=== PATIENT | male | born 1985 ===

== ENCOUNTER 2019-05-24 14:31 | Emergency (ER) | payer SELFPAY ==
[2019-05-24 16:45] VITALS: BP 117/69
[2019-05-24 17:06] LABS: Basophils % (Auto) 0.3 % (0.0-1.8); Eosinophils % (Auto) 0.1 % (0.0-4.3); Hematocrit 43.5 % (35.5-45.6); Lymphocytes # (Auto) 1.4 K/mm3 (1.2-5.4); Lymphocytes % (Auto) 13.6 % (13.4-35.0); Mean Corpuscular HGB Conc 34 % (32-34); Mean Corpuscular Volume 85 fl (84-94); Monocytes # (Auto) 0.4 K/mm3 (0.0-0.8); Monocytes % (Auto) 4.1 % (0.0-7.3); Platelet Count 233 K/mm3 (140-440); Red Blood Count 5.11 M/mm3 (3.65-5.03); Red Cell Distribution Width 12.9 % (13.2-15.2)
[2019-05-24 17:20] LABS: Bilirubin,Urine NEG (Negative); Blood,Urine NEG (Negative); Color,Urine Straw (Yellow); Protein,Urine <15 mg/dL mg/dL (Negative); Urobilinogen,Urine < 2.0 mg/dL (<2.0)
[2019-05-24 17:26] LABS: WBC,Urine < 1.0 /HPF (0.0-6.0)
[2019-05-24 17:29] LABS: Alanine Aminotransferase 25 units/L (7-56); Albumin 4.9 g/dL (3.9-5); BUN/Creatinine Ratio 10; Blood Urea Nitrogen 7 mg/dL (9-20); Calcium 9.6 mg/dL (8.4-10.2); Hemolysis Index 6
--- NOTE | 2019-05-24 18:17 | Event Note ---
ED Screening Note Date of service: 05/24/19 Time: 16:45 ED Screening Note: 33 y/o male comes in for abdominal pain since Monday has gotten worst. No vomiting but has throat pain.No N/V/D. Pain 10/01. No meds nkda. This initial assessment/diagnostic orders/clinical plan/treatment(s) is/are sub ject to change based on patients health status, clinical progression and re- assessment by fellow clinical providers in the ED. Further treatment and workup at subsequent clinical providers discretion. Patient/guardian urged not to elope from the ED as their condition may be serious if not clinically assessed and managed. Initial orders include:
--- NOTE | 2019-05-24 19:08 | Emergency Department Report ---
ED Abdominal Pain HPI - General Chief Complaint: Abdominal Pain Stated Complaint: STOMACH, HEADACHE, VOMITING BLOOD Time Seen by Provider: 05/24/19 16:44 Source: patient Mode of arrival: Ambulatory Limitations: No Limitations - History of Present Illness Initial Comments: This 33-year-old healthy looking male with no problems medical history who presents to ED complaining of abdominal pain for the past one week. Patient states that pain is getting worse today. Patient states that he only had one episode of vomiting a week ago. Patient states that he also experiences a burning sensation in his stomach that sometimes comes up his throat. Patient denies any history of any medical problems. Patient denies any unusual recent foods. He denies fevers/chills/dysuria/shortness of breath/dizziness/ or any other problems. MD Complaint: abdominal pain - Related Data Previous Rx's Medication Instructions Recorded Last Taken Type Famotidine [Pepcid] 20 mg PO BID #40 tablet 05/24/19 Unknown Rx Ondansetron [Zofran ODT TAB] 8 mg PO Q12HR #20 tab.rapdis 05/24/19 Unknown Rx Allergies Allergy/AdvReac Type Severity Reaction Status Date / Time No Known Allergies Allergy Unverified 05/24/19 14:40 ED Review of Systems ROS: Stated complaint: STOMACH, HEADACHE, VOMITING BLOOD Other details as noted in HPI Comment: All other systems reviewed and negative ED Past Medical Hx - Past Medical History Previous Medical History?: No - Surgical History Past Surgical History?: No - Social History Smoking Status: Never Smoker Substance Use Type: None - Medications Home Medications: Home Medications Medication Instructions Recorded Confirmed Last Taken Type Famotidine [Pepcid] 20 mg PO BID #40 tablet 05/24/19 Unknown Rx Ondansetron [Zofran ODT TAB] 8 mg PO Q12HR #20 tab.rapdis 05/24/19 Unknown Rx ED Physical Exam - General Limitations: No Limitations General appearance: alert, in no apparent distress - Head Head exam: Present: atraumatic, normocephalic - Eye Eye exam: Present: normal appearance - ENT ENT exam: Present: mucous membranes moist - Neck Neck exam: Present: normal inspection - Respiratory Respiratory exam: Present: normal lung sounds bilaterally. Absent: respiratory distress - Cardiovascular Cardiovascular Exam: Present: regular rate, normal rhythm. Absent: systolic murmur, diastolic murmur, rubs, gallop - GI/Abdominal GI/Abdominal exam: Present: soft, normal bowel sounds. Absent: distended, tenderness, guarding, rebound, mass, bruit - Rectal Rectal exam: Present: deferred - Extremities Exam Extremities exam: Present: normal inspection - Back Exam Back exam: Present: normal inspection, full ROM. Absent: tenderness, CVA tenderness (R), CVA tenderness (L) - Neurological Exam Neurological exam: Present: alert, oriented X3 - Psychiatric Psychiatric exam: Present: normal affect, normal mood - Skin Skin exam: Present: warm, dry, intact, normal color. Absent: rash ED Course Vital Signs 05/24/19 05/24/19 16:11 16:45 Temperature 97.9 F 97.9 F Pulse Rate 57 L 57 L Respiratory 18 18 Rate Blood Pressure 117/69 117/69 O2 Sat by Pulse 100 100 Oximetry ED Medical Decision Making - Lab Data Result diagrams: 05/24/19 16:52 05/24/19 16:52 Laboratory Last Values WBC 9.9 K/mm3 (4.5-11.0) 05/24/19 16:52 RBC 5.11 M/mm3 (3.65-5.03) H 05/24/19 16:52 Hgb 15.0 gm/dl (11.8-15.2) 05/24/19 16:52 Hct 43.5 % (35.5-45.6) 05/24/19 16:52 MCV 85 fl (84-94) 05/24/19 16:52 MCH 29 pg (28-32) 05/24/19 16:52 MCHC 34 % (32-34) 05/24/19 16:52 RDW 12.9 % (13.2-15.2) L 05/24/19 16:52 Plt Count 233 K/mm3 (140-440) 05/24/19 16:52 Lymph % (Auto) 13.6 % (13.4-35.0) 05/24/19 16:52 [place] % (Auto) 4.1 % (0.0-7.3) 05/24/19 16:52 Eos % (Auto) 0.1 % (0.0-4.3) 05/24/19 16:52 Baso % (Auto) 0.3 % (0.0-1.8) 05/24/19 16:52 Lymph # 1.4 K/mm3 (1.2-5.4) 05/24/19 16:52 [place] # 0.4 K/mm3 (0.0-0.8) 05/24/19 16:52 Eos # 0.0 K/mm3 (0.0-0.4) 05/24/19 16:52 Baso # 0.0 K/mm3 (0.0-0.1) 05/24/19 16:52 Seg Neutrophils % 81.9 % (40.0-70.0) H 05/24/19 16:52 Seg Neutrophils # 8.1 K/mm3 (1.8-7.7) H 05/24/19 16:52 Sodium 142 mmol/L (137-145) 05/24/19 16:52 Potassium 4.2 mmol/L (3.6-5.0) 05/24/19 16:52 Chloride 103.6 mmol/L (98-107) 05/24/19 16:52 Carbon Dioxide 24 mmol/L (22-30) 05/24/19 16:52 Anion Gap 19 mmol/L 05/24/19 16:52 BUN 7 mg/dL (9-20) L 05/24/19 16:52 Creatinine 0.7 mg/dL (0.8-1.5) L 05/24/19 16:52 Estimated GFR > 60 ml/min 05/24/19 16:52 BUN/Creatinine Ratio 10 % 05/24/19 16:52 Glucose 107 mg/dL (75-100) H 05/24/19 16:52 Calcium 9.6 mg/dL (8.4-10.2) 05/24/19 16:52 Total Bilirubin 0.60 mg/dL (0.1-1.2) 05/24/19 16:52 AST 21 units/L (5-40) 05/24/19 16:52 ALT 25 units/L (7-56) 05/24/19 16:52 Alkaline Phosphatase 68 units/L (35-129) 05/24/19 16:52 Total Protein 8.3 g/dL (6.3-8.2) H 05/24/19 16:52 Albumin 4.9 g/dL (3.9-5) 05/24/19 16:52 Albumin/Globulin Ratio 1.4 % 05/24/19 16:52 Lipase 17 units/L (13-60) 05/24/19 16:52 Urine Color Straw (Yellow) 05/24/19 17:00 Urine Turbidity Clear (Clear) 05/24/19 17:00 Urine pH 7.0 (5.0-7.0) 05/24/19 17:00 Ur Specific [place] 1.008 (1.003-1.030) 05/24/19 17:00 Urine Protein <15 mg/dl mg/dL (Negative) 05/24/19 17:00 Urine Glucose (UA) Neg mg/dL (Negative) 05/24/19 17:00 Urine Ketones Neg mg/dL (Negative) 05/24/19 17:00 Urine Blood Neg (Negative) 05/24/19 17:00 Urine Nitrite Neg (Negative) 05/24/19 17:00 Urine Bilirubin Neg (Negative) 05/24/19 17:00 Urine Urobilinogen < 2.0 mg/dL (<2.0) 05/24/19 17:00 Ur Leukocyte Esterase Neg (Negative) 05/24/19 17:00 Urine WBC (Auto) < 1.0 /HPF (0.0-6.0) 05/24/19 17:00 Urine RBC (Auto) 3.0 /HPF (0.0-6.0) 05/24/19 17:00 - Medical Decision Making This 33-year-old male who presents with abdominal pain most likely secondary to acid reflux Labs a urine was ordered prior to my evaluation of patient. Labs a urine and was within normal limits, no signs of infections no leukocytosis. BUN/creatinine slightly low but within normal limits. Discussed findings with the patient. Discussed the patient that he will need to follow-up with the twist packer. Referrals given. Patient is laying In the ED room with no distress, patient had a nontender examination. This time patient will be discharged home with Pepcid and until. Patient would chest itself follow-up with primary care physician. Vital signs are normal. Patient is in no acute or restricted distress. Critical care attestation.: If time is entered above; I have spent that time in minutes in the direct care of this critically ill patient, excluding procedure time. ED Disposition Clinical Impression: Acute gastritis without bleeding, Acute abdominal pain, Acute vomiting Disposition: TO HOME OR SELFCARE Is pt being admited?: No Does the pt Need Aspirin: No Condition: Stable Instructions: Diet for Ulcers and Gastritis (ED), Gastritis (ED) Additional Instructions: Make sure to follow up with the primary care physician as discussed. Take all your medications as you've been prescribed. If you have any worsening symptoms or develop new symptoms please return to ED immediately. Prescriptions: Famotidine [Pepcid] 20 mg PO BID #40 tablet Ondansetron [Zofran ODT TAB] 8 mg PO Q12HR #20 tab.carlosdis Referrals: [facility] [Provider Group] - 2-3 Days Forms: Accompanied Note, Work/School Release Form(ED) Time of Disposition: 19:17 Print Language: CZECH
== END 2019-05-24 19:38 | disposition home or self-care (01) ==
LOC: ED 14:31
DX: K29.60 Other gastritis without bleeding (principal)
CPT/HCPCS: 36415; 80053; 81001; 83690; 85025